=== PATIENT | female | born 1955 | race African-American/Black ===

== ENCOUNTER → 2017-04-23 | Outpatient (CLI) | payer OTHER ==
[~2017-04-23] MED LIST: VICODIN PO
--- NOTE | ~2017-04-23 | CR181 ---
[facility] A Service of [facility] RADIOLOGY TEXT RESULTS PATIENT: KHUSHBU REYNOSO LOCATION: [facility] : 55 UNIT #: [id number] AGE: [address]: SIMONA NGUYEN APRN SEX: F ORDER DR: [id number] [facility] [address] [place], [place] [address] [id number] O MR#: [id number] Acc #: [id number] NAME: KHUSHBU REYNOSO : 1955 SEX: F STUDY DATE/TIME: 04/23/2017 10:57 UNIT: [facility] ROOM: STUDY DESCRIPTION: CR Lumbar Spine 2 or 3 Views Attending Physician: Simona Nguyen Aprn Referring Physician: Simona Nguyen Aprn Ordering Physician: Simona Nguyen Aprn Primary Care Physician: Judy Collins A.P.R.N. MEDICAL IMAGING REPORT This report is preliminary unless electronic signature is present EXAM Lumbar spine series HISTORY Right-sided low back pain over the past month. TECHNIQUE 3 views of the lumbar spine were obtained and compared with 01/02/2012 FINDINGS Alignment is satisfactory. Disc space heights are preserved. Small osteophytes are seen at the [id number] lumbar discs, not significantly changed from previous exam. No pars defects are noted. Posterior facet hypertrophy is seen at to L4-5 and L5-S1 a little worse on the left than on the right. Overall since the previous examination in 2011, degenerative changes have not progressed significantly. IMPRESSION Degenerative disc and facet disease stable since the previous examination. No acute bony abnormalities are seen. Dictated by... Shaun Sorenson M.D. THIS IS AN ELECTRONICALLY VERIFIED REPORT Shaun Sorenson M.D. at 04/24/2017 6:59 AM RLF/veronica TD: 04/23/2017 22:14 JOB #: [id number] MEDICAL IMAGING REPORT Page 1 of 1 COPY
== END | disposition home or self-care (01) ==
LOC: CRAD 10:20
DX: M51.16 Intervertebral disc disorders with radiculopathy, lumbar region (principal)
CPT/HCPCS: 72100

== ENCOUNTER → 2017-05-14 | Outpatient (CLI) | payer OTHER ==
--- NOTE | ~2017-05-14 | MY29 ---
[facility] A Service of [facility] RADIOLOGY TEXT RESULTS PATIENT: KHUSHBU REYNOSO LOCATION: [facility] : 55 UNIT #: [id number] AGE: [address]: SIMONA NGUYEN APRN SEX: F ORDER DR: [id number] [facility] [address] [place], [place] [address] [id number] O MR#: [id number] Acc #: [id number] NAME: KHUSHBU REYNOSO : 1955 SEX: F STUDY DATE/TIME: 05/14/2017 11:11 UNIT: [facility] ROOM: STUDY DESCRIPTION: [place] SCREENING W/ CAD BILAT Attending Physician: Simona Nguyen Aprn Referring Physician: Simona Nguyen Aprn Ordering Physician: Simona Nguyen Aprn Primary Care Physician: Simona Nguyen Aprn MEDICAL IMAGING REPORT This report is preliminary unless electronic signature is present EXAM Digital screening mammogram, 05/14/2017, [facility]. HISTORY 61-year-old woman, no risk elevation. Annual screen. COMPARISON Mammograms 03/18/2015. FINDINGS Digital imaging of each breast was completed utilizing a two-view examination of each breast in craniocaudal and mediolateral-oblique projections. Review and interpretation of digital mammograms include a second review in conjunction with FDA-approved CAD device. There is a normal parenchymal presentation bilaterally consistent with the patient's age. There are no breast masses imaged and no parenchymal asymmetry is visualized. There are no suspicious microcalcifications and I see no focal architectural disturbance. IMPRESSION Negative screening digital mammogram. One-year followup recommended. Patients over the age of 40 are entered into a reminder system with target due date for the next mammogram. A result letter will also be sent to the patient. BIRADS: 1 Negative ADDENDUM Breast parenchyma is fatty replaced. [facility] A Service of [facility] RADIOLOGY TEXT RESULTS PATIENT: KHUSHBU REYNOSO LOCATION: [facility] : 55 UNIT #: [id number] AGE: [address]: SIMONA NGUYEN APRN SEX: F ORDER DR: Dictated by... Gary Zhu M.D. THIS IS AN ELECTRONICALLY VERIFIED REPORT Gary Zhu M.D. at 05/14/2017 2:44 PM GIFTY/benja TD: 05/14/2017 14:20 JOB #: [id number] MEDICAL IMAGING REPORT Page 1 of 1 COPY
== END | disposition home or self-care (01) ==
LOC: CWCC 10:30
DX: Z12.31 Encounter for screening mammogram for malignant neoplasm of breast (principal); R92.8 Other abnormal and inconclusive findings on diagnostic imaging of breast
CPT/HCPCS: G0202